=== PATIENT | male | born 1990 | race African-American/Black ===

== ENCOUNTER 2016-09-10 06:53 | Emergency (ER) | payer OTHER ==
[~2016-09-10] VITALS: Ht 180.3 cm; Wt 113.4 kg
[~2016-09-10 06:53] MED LIST: CARAFATE1 G PO; PRILOSEC10 M1 PO; ZOFRAN PO
== END 2016-09-10 08:00 | disposition home or self-care (01) ==
LOC: CED 06:53
DX: F12.10 Cannabis abuse, uncomplicated (principal); F17.200 Nicotine dependence, unspecified, uncomplicated; Z79.899 Other long term (current) drug therapy
CPT/HCPCS: 99283